=== PATIENT | male | born 1955 | race Caucasian/White ===

== ENCOUNTER 2016-11-27 18:56 | Inpatient (IN) | payer MEDICARE ==
[~2016-11-27] VITALS: Ht 180.3 cm; Wt 86.4 kg
--- NOTE | ~2016-11-27 | CO ---
ADMIT: 11/27/2016 RM/LOC: 526 [facility] MR#: [id number] [address] [facility] [place], [place] [address] KAVITHA LÓPEZ [address] [place] [address] Consultation SEX: M AGE: 61 : 1955 DATE OF CONSULTATION: 11/28/2016 ATTENDING PHYSICIAN: Trey Bird CONSULTING PHYSICIAN: Shar Mensah MD REASON FOR CONSULTATION: Left ring finger infection. HISTORY OF PRESENT ILLNESS: The patient is a 61-year-old male with significant past medical history of chronic kidney disease, on dialysis Wednesday, Wednesday, and Wednesday. Multiple MRSA infections of the right lower extremity and some osteomyelitis, which resulted in amputation of the right lower extremity. In the ER last night with complaint of left ring finger swelling, pain, and redness. So, couple of weeks back, he had a scratch over the dorsum of the left ring finger. He says it has gotten worse since then. It is kind opened up draining purulent discharge, kind right over the PIP joint region here. He has not been very compliant with his dialysis or other medical care. Past medical history, medications, and allergies as per Dr. Bird's history and physical. PHYSICAL EXAMINATION: HEENT, heart, lungs, and abdomen as per Dr. Bird's history and physical. Examination of the left ring finger diffusely swollen red area over the dorsal aspect, under the PIP and middle phalanx area that has open draining purulent material. He is able to flex and extend the digit. It appears to be otherwise distally neurovascularly intact. Minimally decreased sensation in the digit here. IMAGING: X-rays were also obtained of the left hand. These are reviewed. No evidence of any bony abnormality findings here. There is soft tissue swelling of the ring finger noted. ASSESSMENT: Left ring finger infection cellulitis with what appeared be an abscess dorsally here. Does not appear to have any signs of flexor tenosynovitis at this time. PLAN: At this point, we talked to the patient about doing an irrigation and debridement of this with continued antibiotics. He is on some vancomycin currently. The patient does understand and agrees to proceed with this. We will go and get this scheduled for him probably later this afternoon. Shar Mensah MD/ [place]ota JOB #: [id number] CC: Trey Bird, Attending Physician ADMIT: 11/27/2016 RM/LOC: 526 [facility] MR#: [id number] [address] [facility] [address] [place] [phone] KAVITHA LÓPEZ [facility] [address] [place] [phone] Consultation SEX: M AGE: 61 : 1955 Lindsey Landeros Family Physician
--- NOTE | ~2016-11-27 | WND ---
ADMIT: 11/27/2016 RM/LOC: 526 [facility] MR#: [id number] [address] [facility] [place], [place] [address] KAVITHA LÓPEZ [address] [place] [address] Wound Care Clinic SEX: M AGE: 61 : 1955 DATE OF VISIT: 12/01/2016 TIME IN: 1700 hours. TIME OUT: 1730 hours. REASON FOR CONSULT: Status post surgical debridement of an abscess to his 4th finger on the left hand. This is a consult from Dr. Mensah. HISTORY OF PRESENT ILLNESS: Kavitha is a 61-year-old, noncompliant diabetic gentleman, who presented to the emergency room on November 27, 2016, with evidence of a cellulitis of his left ring finger. During his time in the emergency room, Kavitha reported that he was homeless. He was found to be noncompliant with his Wednesday, Wednesday, and Wednesday dialysis. In addition, he had been instructed multiple times to be seen by ortho regarding this infected left finger. 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 Kavitha reports that the abscess to his left ring finger started a few weeks ago as a scratch and has progressively worsened and so he decided to present to the emergency room. PAST MEDICAL HISTORY: Type 2 diabetes mellitus, end-stage renal disease, hypertension, anemia of chronic kidney disease, renal osteodystrophy, hyperkalemia, history of multiple MRSA infections, and hyponatremia. 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 He denies any tobacco use. He does report social use of alcohol. He reports that he is currently homeless. FAMILY HISTORY: Noncontributory. REVIEW OF SYSTEMS: He does report pain to the left 4th finger. He denies any complaints of fever or chills, nausea, or vomiting. He denies any chest pain, shortness of breath, or cough. ALLERGIES: Zosyn. CURRENT MEDICATIONS: 1. Lopressor. 2. PhosLo. 3. Renagel. 4. Merrem. PHYSICAL EXAMINATION: VITAL SIGNS: Temperature is 99.5 degrees Fahrenheit, pulse 73, respirations 14, blood pressure 160/81, and pulse ox 94% on room air. GENERAL: Assessment reveals an alert and oriented 61-year-old male. EXTREMITIES: Assessment of his left eye ring finger over the proximal middle phalanx dorsal surface, he has a gauze that is saturated with dry blood. It is very difficult to remove. I did have him soak it for 5 minutes and was able to remove the dressing. There was some bleeding noted. After removal, the wound ADMIT: 11/27/2016 RM/LOC: 526 [facility] MR#: [id number] [address] [facility] [address] [place] [phone] KAVITHA LÓPEZ [facility] [address] [place] [address] Wound Care Clinic SEX: M AGE: 61 : 1955 bed measures over the dorsal surface of his 4th finger on the left hand measures 2 cm in length x 1 cm in width x 1 cm in depth. There is a tendon sheath visible in the wound bed. Periwound erythema is extensive over the entire 4th finger. There is swelling and pain noted as well. On the side of his finger, he has a category 3 skin tear that is approximately 3.5 cm in length x 2.5 cm in width. ASSESSMENT: Status post incision and drainage of left 4th finger abscess over the proximal and middle phalanx dorsal surface. PLAN: After soaking the wound for a while in water, I was able to remove the dressing to the wound bed. There was some bleeding noted. I lightly packed Xeroform into the wound bed and around the finger and secured it with Janell. Staff will change this daily. The patient had a significant amount of pain with the dressing change. He was able to get morphine after it was over. Prior to me touching his finger, he was rating his pain as 6/10. Wound Care will continue to follow. I would like to thank Dr. Mensah for allowing us to participate in Kavitha's care. Katrin Dimas APRN/ [place] JOB #: [id number] CC: Trey Bird DO, Attending Physician Lindsey Landeros MD, Family Physician
[~2016-11-27 18:56] MED LIST: AUGMENTIN875 MG PO; COZAAR100 MG PO; FLAGYL-DPS500 MG PO; HUMALOG100 UNIT/1 SQ; LOPRESSOR DPS100 MG PO; METOPROLOL TART25 MG PO; MIRAPEX1.5 MG PO; NEPHRO-VITE1 TAB PO; NORVASC DPS10 MG PO; NOVOLOG100 UNIT/2 SQ; PEPCID DPS20 MG PO; PHOS-LO667 MG PO; REGLAN DPS5 MG PO; RENAGEL800 MG PO; RENVELA800 MG PO; VANCOCIN125 MG PO
--- NOTE | 2016-11-30 08:01 | HP ---
ADMIT: 11/27/2016 RM/LOC: 526 [facility] MR#: [id number] [address] [facility] [place], [place] [address] KAVITHA LÓPEZ [address] [place] [address] History and Physical SEX: M AGE: 61 : 1955 DATE OF SERVICE: REASON FOR ADMISSION: Evidence of cellulitis left ring finger abrased area with evidence of open abrased wound with pus. Concerns as he has a history of MRSA with recurrent MRSA infection. HISTORY OF PRESENT ILLNESS: Mr. López is a noncompliant gentleman who has a history of end-stage renal disease, peripheral vascular disease, history of recent diagnosis of C. diff within the last year, coronary artery disease, right above the knee amputation, history of MRSA infections, hyponatremia, type 2 diabetes, right upper arm fistula, anemia of chronic disease who came over from the dialysis unit yesterday with abrased area tenderness soft tissue swelling of left ring finger. This started about a few weeks ago as a scratch and now has progressively worsened and has become swollen with purulent discharge. In the emergency room, his sodium was 135, potassium 3.2, BUN and creatinine 25 and 6.0, blood sugar 128, white count 4.0, hemoglobin 9.2, platelet count 113,000. C-reactive protein 4.45. Sedimentation rate was 8.4. X- ray of the hand showed degenerative disease. He at this time is admitted for continued evaluation and care and possible debridement and surgical intervention. PAST MEDICAL HISTORY: As above. SOCIAL HISTORY: He is noncompliant with his therapies at intervals. FAMILY HISTORY: Noncontributory. REVIEW OF SYSTEMS: He says he has been feeling well, has not had any fever that he is aware of. PHYSICAL EXAMINATION: GENERAL: He is alert and articulate. HEENT: Normal. HEART: Regular rhythm. LUNGS: Clear, but diminished to auscultation. ABDOMEN: Soft, nontender, and nondistended. EXTREMITIES: Deformity of his left foot. No evidence of skin breakdown. Right above the knee amputation. His finger on his left hand is red, swollen, abrased with an approximately a dime-sized area of white fluid, which is under the surface. He is able to move it but decreased range of motion. ADMIT: 11/27/2016 RM/LOC: 526 [facility] MR#: [id number] [address] [facility] [address] [place], [place] [address] KAVITHA LÓPEZ [facility] [address] [place] [address] History and Physical SEX: M AGE: 61 : 1955 ASSESSMENT AND PLAN: Admission of a 61-year-old gentleman with end-stage renal disease, on hemodialysis, history of methicillin-resistant Staphylococcus aureus infection, peripheral vascular disease, coronary artery disease, right above the knee amputation, hyponatremia, type 2 diabetes. At this time, we will admit to [facility], surgical consult from Orthopedics has been obtained for possible debridement. We will continue on broad-spectrum antibiotics, which will include vancomycin. He had a skin rash with Zosyn. We will change to meropenem. We will continue to follow closely. He abrased this area. If he is not up to date on his tetanus shot, we will give that to him as well. Continue to follow closely. His cardiovascular status is stable. Dr. Landeros will follow for hemodialysis when indicated. Arabella Mas MD/ [place] JOB #: [id number] CC: Trey Bird, Attending Physician Lindsey Landeros, Family Physician
--- NOTE | 2016-12-01 00:46 | ER ---
ADMIT: 11/27/2016 RM/LOC: 526 [facility] MR#: [id number] [address] [facility] [place], [place] [address] KAVITHA LÓPEZ [address] [place] [address] Emergency Room Report SEX: M AGE: 61 : 1955 DATE: 11/27/2016 HISTORY OF PRESENT ILLNESS: The patient is a 61-year-old male with a past medical history of hypertension, chronic kidney disease on dialysis on Wednesday, Wednesday, and Wednesday; and multiple MRSA infection of the right lower extremity and also myelitis which resulted in amputation on the mid thigh of the right lower extremity. The patient came to the ER with chief complaint of left ring finger swelling and pain and tenderness. The patient states about a few weeks back, there was a scratch over the area on the dorsum of the left 4th finger, and he just covered it with a not very clean piece of cloth and states that after that, the place developed becoming more swollen and after that there was some pus discharge coming out of it, and the patient was not taking care of it very well. The patient also states that he is not following the dialysis very well in the last week because of the rain, he missed some sessions. PHYSICAL EXAMINATION: GENERAL: The patient was afebrile in the ER, in mild distress. The patient was disheveled. No delusions or hallucinations or suicidal or homicidal ideations. The patient states he is homeless. HEAD AND NECK: Normal. Pupils are 3 mm, reactive to light bilaterally. CHEST: Clear bilaterally. HEART: Normal heart sounds. ABDOMEN: Soft. On the right side, there is above knee amputation without any discharge or erythema. EXTREMITIES: The left lower extremity is noncontributory. Right upper extremity exam is noncontributory and left upper extremity, the patient has erythema on the whole 4th finger, more on the proximal and middle phalanx with pus discharge coming out on the PIP of the dorsum of the left 4th finger and also there is a collection of the pus on the proximal and medial phalanx dorsum part on the 4th fingers. Capillary fillings are grossly normal. The swelling and erythema also extends from the extensor side to the flexor side mildly. IMAGING: X-ray was not very suggestive of osteomyelitis or soft tissue gas. The patient was started on vancomycin IV. The blood culture and culture of the left hand wound was sent to lab. The patient had white blood cell of 4.0 with hemoglobin of 9.2 and platelet of 113,000. The ESR was elevated to 84 and CRP was also elevated to 4.4. The patient has a sodium of 136 with potassium of 3.2 and glucose of 128. Lactic acid was 1.2. ADMIT: 11/27/2016 RM/LOC: 526 [facility] MR#: [id number] [address] [facility] [address] [place] [phone] KAVITHA LÓPEZ [facility] [address] [place] [address] Emergency Room Report SEX: M AGE: 61 : 1955 Concerning the patient's condition and noncompliant to the medication and with followups, Dr. Landeros who is taking care of the dialysis was contacted, and he was aware of the left hand lesion and stated that the patient does not follow up as an outpatient at all, and the patient was mentioned many times to follow up with Dr. Bird. I contacted Dr. Bird, and he also knew the patient. He said that the patient, although multiple times of strict advice to come to follow up with the left finger swelling, but the patient did not come for further followups. I talked also to the patient, and he agreed to be admitted for further followups and treatments and the patient was admitted by the medicine team for further followups and treatments of the left 4th finger cellulitis, subcutaneous abscess, and questionable MRSA. Jose Peterson MD/ [place] JOB #: [id number] CC: Trey Bird DO, Attending Physician Lindsey Landeros MD, Family Physician
[2016-12-02] MEDS ORDERED: PHOS-LO667 MG PO (06:38)
[2016-12-02] MEDS ORDERED: VANCOCIN125 MG IV (06:39)
--- NOTE | 2016-12-04 09:14 | OR ---
ADMIT: 11/27/2016 RM/LOC: 526 [facility] MR#: [id number] [address] [facility] [place], [place] [address] KAVITHA LÓPEZ [address] [place] [address] Operative/Delivery Room Report SEX: M AGE: 61 : 1955 SURGERY DATE: 11/28/2016 SURGEON: Shar Mensah MD PREOPERATIVE DIAGNOSIS: Left ring finger abscess, cellulitis, and necrotic tissue. POSTOPERATIVE DIAGNOSIS: Left ring finger abscess, cellulitis, and necrotic tissue. PROCEDURE: Irrigation and debridement of left ring finger abscess with debridement of skin and subcutaneous tissue as well as abscess here. ANESTHESIA: General. ESTIMATED BLOOD LOSS: Less than 10 mL. TOTAL TOURNIQUET TIME: 5 minutes using a Torie tourniquet. COMPLICATIONS: None. CONDITION: Fair to recovery room. INDICATIONS: The patient is 61-year-old male, poorly-controlled diabetic, sounds like he is fairly noncompliant with his treatment followups. He also has end-stage renal disease on dialysis. Notes about 2 weeks ago when he was lifting a case of water kind of pinched his ring finger here. Since that time, things were gotten worse with area of purulent material over the dorsal aspect of the ring finger over the middle phalanx with redness, swelling, and pain in the digit here. Did not have any pain over the volar aspect of the finger. No signs or symptoms consistent with flexor tenosynovitis. We discussed with the patient taking back to the operating room, do an irrigation and debridement of this hoping there may be a defect here that may need to heal by secondary intention, and we will have Wound Care take a look at this to see if he might be able to get a wound VAC or just wound care dressing changes. We did write a consult for them to see the patient. At this point, the patient did agree to proceed. He is currently on some vancomycin as he has MRSA infections in the past. DESCRIPTION OF PROCEDURE: After informed was obtained, the patient was taken to the operating room, placed on the operative table in supine position. General anesthetic was administered. After adequate general anesthesia, the left hand was prepped and draped in the usual sterile fashion. We then placed a Torie tourniquet on the ring finger. There was about an 8 x 8 mm area of necrotic tissue with yellow purulent material over the dorsal aspect of the middle phalanx here. We then ellipsed this out ellipsing out about a 2.5 x 1 cm area of skin and subcutaneous tissue and abscess. We tracked this down to the extensor tendon mechanism, which appeared to be intact. After draining and cleaning all this up, we then used a rongeur to debride some additional ADMIT: 11/27/2016 RM/LOC: 526 [facility] MR#: [id number] 26[address] [facility] [address] [place] [phone] [facility] [address] [place] [address] Operative/Delivery Room Report SEX: M AGE: 61 : 1955 necrotic tissue in this area. Once this was completed, things look to be fairly clean, we copiously irrigated the wound with bacitracin solution until things were nice and clean here, did not find any other areas of abscess at this point. He is also noted to have a blister on the ring finger just at the base of the nail as well, which we decompressed sterilely using a needle. The whole finger as well as the wound was irrigated copiously once again. We then placed a saline soaked Janell into the wound and dressed this with Xeroform, plain gauze, and a Janell wrap, overwrapped with a Coban. Once again, he had a defect remaining over the middle phalanx about 2.5 x 1 cm that will have to be healing by secondary intention or possibly even a wound VAC here. We will have Wound Care get involved and manage the wound. Have him continue antibiotics as per his primary care physician, and we will kind of watch things along. Shar Mensah MD/ [place] JOB #: [id number] CC: Trey Bird, Attending Physician Lindsey Landeros, Family Physician
--- NOTE | 2017-01-07 08:19 | DS ---
ADMIT: 11/27/2016 RM/LOC: 526 [facility] MR#: [id number] [address] [facility] [place], [place] [address] KAVITHA LÓPEZ [address] [place] [address] General Discharge Summary SEX: M AGE: 61 : 1955 ADMISSION DATE: 11/27/2016 DISCHARGE DATE: 12/01/2016 REASON FOR HOSPITALIZATION: Cellulitis of left ring finger. HISTORY OF PRESENT ILLNESS: The patient presented on the , and Dr. Mas performed his initial assessment where she found him to have an abrased area over the left ring finger with purulent drainage. He has underlying complicating history of MRSA, prior knee amputation, peripheral arterial disease, coronary artery disease, prior history of C. difficile, end- stage renal disease, on dialysis and noncompliance. HOSPITAL COURSE: He was admitted to the hospital, underwent culture evaluation and was started on broad-spectrum antibiotic therapy including vancomycin. We asked for Orthopedic evaluation. On the first night of his stay, he was receiving Zosyn and developed an itching sensation, and we therefore held and stopped his Zosyn therapy and started him on Merrem. The patient underwent an incision and drainage by Dr. Mensah and then Wound Care was incorporated. His home medications were continued. On 11/30, he was still spiking low-grade temperatures. His cultures revealed Staph and multiple organisms. He was given a tetanus booster. Dr. Landeros followed along and provided Nephrology care and dialysis orders. On 12/01, he was feeling well, he was afebrile, his finger was showing signs of improvement. His culture did show Staph aureus/MRSA. This is the reason we made arrangements for ongoing IV vancomycin. We made arrangements for his dismissal and a 10-day course of IV vancomycin with followup in the Wound Care Clinic. He was dismissed with the above instructions and to follow up within two weeks of dismissal for review and exam if not already performed by Dr. Allen in the Wound Care clinic. Trey Bird DO/ [place] JOB #: [id number] CC: Trey Bird DO, Attending Physician Lindsey Landeros MD, Family Physician
== END 2016-12-01 13:30 | disposition home or self-care (01) | DRG 579 ==
LOC: ER 18:56 → 5MS 21:54
PROVIDERS: ADMIT Internal Medicine
PROC: 0JBK0ZZ Excision of Left Hand Subcutaneous Tissue and Fascia, Open Approach (ICD-10-PCS; principal; 2016-11-28)
PROC: 5A1D00Z (ICD-10-PCS; 2016-11-30)
DX: L02.512 Cutaneous abscess of left hand (principal); N18.6 End stage renal disease; E11.22 Type 2 diabetes mellitus with diabetic chronic kidney disease; I12.0 Hypertensive chronic kidney disease with stage 5 chronic kidney disease or end stage renal disease; L03.012 Cellulitis of left finger; B95.62 Methicillin resistant Staphylococcus aureus infection as the cause of diseases classified elsewhere; E11.65 Type 2 diabetes mellitus with hyperglycemia; E11.51 Type 2 diabetes mellitus with diabetic peripheral angiopathy without gangrene; M19.042 Primary osteoarthritis, left hand; D63.1 Anemia in chronic kidney disease; I25.10 Atherosclerotic heart disease of native coronary artery without angina pectoris; Z99.2 Dependence on renal dialysis; Z89.611 Acquired absence of right leg above knee; Z91.19 Patient's noncompliance with other medical treatment and regimen